=== PATIENT | female | born 1945 | race Caucasian/White ===

== ENCOUNTER 2023-10-04 15:07 | Emergency (ER) | payer MEDICARE, MEDICAID, SELFPAY ==
[2023-10-04 15:08] VITALS: BP 134/89; PULSE 107; RESP 19; TEMP 36.8; O2SAT 97; BMI 17.6
[2023-10-04 15:09] VITALS: BP 134/89; PULSE 98; O2SAT 96
--- NOTE | 2023-10-04 15:19 | CT_ITS ---
FINAL REPORT CLINICAL HISTORY: fall, head trauma FINDINGS: Axial CT images of the cervical spine were obtained without contrast. Sagittal and coronal reformatted images were also obtained. This study was performed with techniques to keep radiation doses as low as reasonably achievable (ALARA). Individualized dose reduction techniques using automated exposure control or adjustment of mA and/or kV according to the patient''s size were employed. There is no evidence of fracture or dislocation. There are mild and moderate degenerative changes. Kyphosis is centered on C4-5. There is multilevel neural foraminal narrowing. IMPRESSION: Degenerative changes without acute bony abnormality. Reviewed, Interpreted and Dictated by Brent Spring III, MD Transcribed by Radha Delacruz Authenticated and [facility]
--- NOTE | 2023-10-04 15:19 | CT_ITS ---
FINAL REPORT CLINICAL HISTORY: fall, thoracolumbar spine pain FINDINGS: Axial CT images of the thoracic spine were obtained without contrast. Sagittal and coronal reformatted images were also obtained. This study was performed with techniques to keep radiation doses as low as reasonably achievable (ALARA). Individualized dose reduction techniques using automated exposure control or adjustment of mA and/or kV according to the patient's size were employed. There is no evidence of fracture. There are multilevel mild degenerative changes without significant central canal stenosis. IMPRESSION: Mild degenerative changes without acute bony abnormality. Reviewed, Interpreted and Dictated by Brent Spring III, MD Transcribed by Radha Delacruz Authenticated and [facility][1]
--- NOTE | 2023-10-04 15:19 | CT_ITS ---
FINAL REPORT CLINICAL HISTORY: fall, head trauma FINDINGS: Axial images of the head were obtained without contrast. Coronal reformatted images were also obtained. This study was performed with techniques to keep radiation doses as low as reasonably achievable (ALARA). Individualized dose reduction techniques using automated exposure control or adjustment of mA and/or kV according to the patient's size were employed. There is generalized age-appropriate atrophy. Periventricular low-attenuation areas are seen consistent with mild chronic ischemic changes. There is no evidence of intracranial hemorrhage or mass. There is no evidence of acute infarct. There is no evidence of shift of the midline structures. No skull abnormality is seen on the bone window images. IMPRESSION: Atrophy and mild periventricular chronic ischemic changes. No acute intracranial abnormality identified. Reviewed, Interpreted and Dictated by Brent Spring III, MD Transcribed by Radha Delacruz Authenticated and [facility]
--- NOTE | 2023-10-04 15:19 | CT_ITS ---
FINAL REPORT TECHNIQUE: Axial imaging of the lumbar spine was obtained without contrast. Sagittal and coronal reformatted images were also obtained and reviewed. This study was performed with techniques to keep radiation doses as low as reasonably achievable (ALARA). Individualized dose reduction techniques using automated exposure control or adjustment of mA and/or kV according to the patient's size were employed. CLINICAL HISTORY: fall, thoracolumbar spine pain FINDINGS: There is a mild, acute L1 superior endplate compression fracture with 10% loss of superior height. Moderate degenerative changes are present. There is mild anterolisthesis of L4 on 5. There is multilevel neural foraminal narrowing, worst at L4-5. IMPRESSION: Mild, acute L1 superior endplate compression fracture. Reviewed, Interpreted and Dictated by Brent Spring III, MD Transcribed by Radha Delacruz Authenticated and [facility]
[2023-10-04 15:20] VITALS: BP 140/79; PULSE 80; O2SAT 97
--- NOTE | 2023-10-04 15:24 | ED_ITS ---
Discharge Plan Disposition Patient Disposition: Home, Self-Care Chief Complaint: Fall Referrals Follow up/Referrals: Provider,Referral, MD [Primary Care Provider] - See instructions Activity Restrictions/Add. Instructions Additional Instructions/Restrictions: Call your family doctor to establish care for this visit to the emergency department and schedule follow-up within 48 hours to ensure improvement. If you have any worsening of your condition or any other concerning signs or symptoms, return to the emergency department or your primary care doctor for further evaluation. Take Tylenol 1000 mg every 6 hours (4 times daily) and ibuprofen 400 mg every 6 hours (4 times daily) as needed with food and water to prevent GI upset and kidney damage. Dr. Addison information here if you develop chronic pain from this spinal fracture. Spinal fracture was less than 10% of your L1 vertebra, so should heal without issue. Talk to family doctor about scheduling home health, home physical therapy for structure support and stabilization of spine. Clinical Impressions Clinical Impression: Closed compression fracture of L1 vertebra Qualifiers: Encounter type: initial encounter Qualified Code(s): S32.010A - Wedge compression fracture of first lumbar vertebra, initial encounter for closed fracture Discharge ED Provider: Owen Jolley General Adult HPI General Chief complaint: Fall Stated complaint: fall Time Seen by Provider: 10/04/23 15:09 Mode of Arrival: EMS Source of Information: Patient and EMS Limitations: No Limitations Description of Symptoms (Recalled from ER Triage Doc. by RN): pt presents to ED with c/o fall. pt was attempting to walk to bathroom with her walker. her walker got hung up on a piece of the carpet, and she fell backwards. pt reports pain located in back of head and lower back. no LOC and no bloodthinners History of Present Illness HPI narrative: 77-year-old history of hyperlipidemia presenting with fall. Patient has chronic deconditioning and neuropathy for which she usually uses walker to get around. She states she was walking with a walker, was on uneven carpet, fell, causing her to fall backward and hit the ground. She landed with her bottom on carpet and had immediate back pain like I was splitting in half. She then fell backward and struck the back of her head. Fall was witnessed by family. No loss of consciousness. Patient was brought immediately to the emergency department by EMS. Patient not complaining of headache on my evaluation, but co mplaining of severe back pain that is midline as well as bilateral flank. It is mild to moderate in intensity and does not radiate. Related Data Allergies Allergy/AdvReac Type Severity Reaction Status Date / Time No Known Allergies Allergy Verified 10/04/23 15:25 [facility] Disclaimer: The information contained in this section may have been updated after the patient was seen, as this information can be updated by other users. Social History Smoking Status: Never smoker alcohol intake: never current occupational status: unemployed Travel in the last 8 weeks: None ROS Obtained: Yes All systems reviewed & no additional complaints except as documented Physical Exam General General appearance: alert and in no apparent distress Head Head exam: normocephalic and other (2 cm knot on the back of her head. No laceration or anything amenable to closure) Eye Eye exam: Present normal appearance, PERRL and EOMI ENT ENT exam: Present mucous membranes moist Neck Neck exam: Present normal inspection, full ROM and trachea midline; Absent tenderness Respiratory Respiratory exam: Present normal lung sounds bilaterally; Absent respiratory distress, wheezes, stridor, accessory muscle use or prolonged expiratory phase Cardiovascular Cardiovascular exam: Present normal rhythm and tachycardia Abdominal Exam Abdominal exam: Present soft; Absent distention, tenderness, guarding, rebound or rigidity Extremities Exam Extremities exam: Present full ROM; Absent tenderness or edema Back Exam Back exam: Present tenderness (Midline thoracolumbar spine. No outward signs of deformity or injury. No bruising), CVA tenderness (R) and CVA tenderness (L) Neurological Exam Neurological exam: Present alert, oriented X3, CN II-XII intact and normal gait; Absent motor sensory deficit Skin Skin exam: Present warm and dry; Absent diaphoresis or erythema Medical Decision Making Medical Records Medical records reviewed: Yes I reviewed the patient's medical records. Ruddy Inquiry Pt receiving controlled substance: No Ruddy was queried for this patient: No Vital Signs: 10/04/23 15:08 10/04/23 15:09 10/04/23 15:20 Temperature 98.2 F Temperature Source Oral Pulse Rate 98 H 80 Pulse Rate [Left Radial] 107 H Respiratory Rate 19 Blood Pressure 134/89 140/79 Blood Pressure [Right Arm] 134/89 Blood Pressure Mean 104 Blood Pressure Mean [Right Arm] 104 02 Sat by Pulse Oximetry 97 96 97 Oxygen Delivery Method Room Air Room Air 10/04/23 16:00 Temperature Temperature Source Pulse Rate 87 Pulse Rate [Left Radial] Respiratory Rate Blood Pressure 143/78 H Blood Pressure [Right Arm] Blood Pressure Mean Blood Pressure Mean [Right Arm] 02 Sat by Pulse Oximetry 97 Oxygen Delivery Method Orders (Tests/Meds): ED MEDICATIONS Discontinued Medications Generic Name Dose Route Start Last Admin Trade Name Silver PRN Reason Stop Dose Admin Acetaminophen 1,000 mg 10/04/23 15:19 10/04/23 15:27 Acetaminophen 500mg Tab PO 10/04/23 15:20 1,000 mg ONCE ONE Administration Ibuprofen 600 mg 10/04/23 15:19 10/04/23 15:27 Ibuprofen 600 Mg Tablet PO 10/04/23 15:20 600 mg ONCE ONE Administration Lidocaine 1 each 10/04/23 15:19 10/04/23 15:27 Lidocaine 5% Transdermal Patch TP 10/04/23 15:20 1 each ONCE ONE Administration ORDERS Category Date Time Status CT bony pelvis Stat Cat Scan 10/04/23 15:[address] cervical spine wo con Stat Cat Scan 10/04/23 15:[address] head/brain wo con Stat Cat Scan 10/04/23 15:[address] lumbar spine wo con Stat Cat Scan 10/04/23 15:[address] thoracic spine wo con Stat Cat Scan 10/04/23 15:19 Completed Medical Decision Narrative: 77-year-old female with history of hyperlipidemia presenting with fall. Patient is not on anticoagulation and is overall, generally healthy. History was obtained via conversation with patient and family, EMS. On arrival, patient hemodynamically stable, alert, oriented x4, appropriate, GCS 15, moving all extremities spontaneously, pupils equal and reactive to light. Full physical exam performed and significant for well-appearing woman in no acute distress. Patient does have 2 cm hematoma on the left occipital scalp. No laceration or open injury. Patient is neurovascularly intact. Neuroexam normal. Thoracolumbar spine pain without outward signs of injury or deformity with associated paraspinal muscular tenderness. No hip tenderness or lower extremity tenderness. Differential includes intracranial bleed, concussion, contusion, cervical spine injury, lumbar spine injury, among others. Patient was given lidocaine patch, Tylenol, Motrin for symptomatic management and correction of underlying abnormalities. Workup independently interpreted and significant for less than 10% height loss vertebral compression fracture of the superior/anterior aspect of L1. No intracranial bleed, no cervical spine injury. See radiology read for full review of final results. On reevaluation, patient resting baseline bed. Given patient presentation, workup, history, this most likely represents acute L1 compression fracture in the setting of fall from standing. Because patient at baseline without signs or symptoms of clinical decompensation, deemed appropriate for discharge. Results were relayed to patient who voiced understanding and were agreeable to outpatient management and follow up. At the time of discharge the patient was hemodynamically stable, tolerating PO, and mobilizing appropriately. Critical Care Critical Care Time Critical Care Time: No
[2023-10-04] MEDS: ACETAMINOPHEN 500MG TAB 1000 MG PO (15:27)
[2023-10-04] MEDS: IBUPROFEN 600 MG TABLET PO (15:27)
[2023-10-04] MEDS: LIDOCAINE 5% TRANSDERMAL PATCH 1 EACH TP (15:27)
--- NOTE | 2023-10-04 15:30 | CT_ITS ---
FINAL REPORT TECHNIQUE: Axial images through the pelvis were performed by computed tomography. Sagittal and coronal reformatted images were obtained and reviewed. This study was performed with techniques to keep radiation doses as low as reasonably achievable (ALARA). Individualized dose reduction techniques using automated exposure control or adjustment of mA and/or kV according to the patient's size were employed. CLINICAL HISTORY: fall, R lower back pain FINDINGS: No fracture is identified. The bones are osteopenic. There are degenerative changes in both hips, right greater than left. There is sclerosis of both superior femoral heads of uncertain etiology, could represent avascular necrosis. IMPRESSION: No fracture identified. Sclerosis of both femoral heads of uncertain etiology, could represent avascular necrosis. Reviewed, Interpreted and Dictated by Brent Spring III, MD Transcribed by Radha Dleacruz Authenticated and [facility]
[2023-10-04 16:00] VITALS: BP 143/78; PULSE 87; O2SAT 97
[2023-10-04 16:20] VITALS: BP 128/82; PULSE 90; O2SAT 96
[2023-10-04 16:58] VITALS: BP 150/76; PULSE 86; RESP 17; TEMP 36.8; O2SAT 96
== END 2023-10-04 16:58 | disposition home or self-care (01) ==
PROVIDERS: Emergency Provider Emergency Medicine
DX: S32.010A Wedge compression fracture of first lumbar vertebra, initial encounter for closed fracture (principal); S09.90XA Unspecified injury of head, initial encounter; W18.39XA Other fall on same level, initial encounter
CPT/HCPCS: 70450; 72125; 72128; 72131; 72192; 99285